=== PATIENT | male | born 1975 | race Caucasian/White ===

== ENCOUNTER 2017-07-31 00:47 | Emergency (ER) | payer MEDICARE ==
[~2017-07-31] VITALS: Ht 170.2 cm; Wt 100.0 kg
[2017-07-31 01:00] VITALS: BP 134/85; PULSE 81; RESP 18; TEMP 97.1; O2SAT 97
== END 2017-07-31 02:35 | disposition left against medical advice (07) ==
LOC: NED 00:47
DX: Z03.89 Encounter for observation for other suspected diseases and conditions ruled out (principal)
CPT/HCPCS: 99281